=== PATIENT | male | born 1955 | race Two or more races ===

== ENCOUNTER 2021-08-22 18:15 | Emergency (ER) | payer OTHER ==
[2021-08-22 18:53] VITALS: BP 174/82; PULSE 99; TEMP 99; BMI 19.4
== END 2021-08-22 19:05 | disposition home or self-care (01) ==
LOC: FER 18:15
DX: M21.331 Wrist drop, right wrist (principal)
CPT/HCPCS: 99281-25

== ENCOUNTER 2021-10-19 14:19 | Emergency (ER) | payer OTHER ==
[2021-10-19 14:27] VITALS: TEMP 98.7; BMI 20.5
[2021-10-19 16:31] VITALS: BP 136/70; PULSE 65
== END 2021-10-19 16:33 | disposition home or self-care (01) ==
LOC: FER 14:19
DX: M62.81 Muscle weakness (generalized) (principal)
CPT/HCPCS: 70450-TC; 73030-TC-RT-FY; 73070-TC-RT-FY; 99285-25

== ENCOUNTER 2022-04-26 15:07 | Inpatient (IN) | payer OTHER ==
[2022-04-26 15:30] VITALS: BMI 20.7
[2022-04-26] MEDS ORDERED: ASPIRIN 81 MG CHEWABLE TABLETS PO ONE (17:33)
[2022-04-26] MEDS ORDERED: ASPIRIN 81 MG CHEWABLE TABLETS ONE (18:34)
[2022-04-26 19:05] LABS: BASO % 0.8 % (0-2.0); EOS % 4.3 % (0-4.5); HEMATOCRIT 33.4 % (35.4-49); HEMOGLOBIN 11.3 GM/dL (11.7-16.9); LYMPH % 33.8 % (8-40); MCH 31.1 pg (25.7-33.7); MCHC 33.7 g/dl (32.0-35.9); MEAN CELL VOLUME 92.3 fl (80-96); MEAN PLT VOLUME 9.7 fl (7.5-11.1); MONO % 7.9 % (3.8-10.2); NEUT % 53.2 % (42.8-82.8); PLATELET COUNT 143 10^3/uL (134-434); RBC 3.62 M/mm3 (4.00-5.60); RDW 14.6 % (11.9-15.9); WHITE BLOOD COUNT 5.3 K/mm3 (4.0-10.0)
[2022-04-26 19:14] LABS: CHLORIDE 110 mmol/L (98-107); SODIUM 144 mmol/L (136-145)
[2022-04-26 19:16] LABS: CALCIUM 8.6 mg/dL (8.5-10.1)
[2022-04-26 19:17] LABS: ALBUMIN 3.5 g/dl (3.4-5.0); ANION GAP 6 MMOL/L (8-16); BLOOD UREA NITROGEN 22.3 mg/dL (7-18); CO2 28 mmol/L (21-32); GLUCOSE,RANDOM 70 mg/dL (74-106)
[2022-04-26 19:20] LABS: CREATININE 1.3 mg/dL (0.55-1.3); SGOT/AST 29 U/L (15-37); SGPT/ALT 22 U/L (13-61)
[2022-04-26 19:22] LABS: BILIRUBIN,TOTAL 0.9 mg/dL (0.2-1); TOT PROT 6.6 g/dl (6.4-8.2)
[2022-04-26 19:23] LABS: ALK PHOS 81 U/L (45-117)
[2022-04-27] MEDS ORDERED: ALBUTEROL SO4 HFA INHALER IH PRN (07:08)
[2022-04-27] MEDS ORDERED: BISACODYL 5 MG TABLET.DR (FP) PO SCH (07:15)
[2022-04-27] MEDS ORDERED: ONDANSETRON 4 MG TABLET PO SCH (07:15)
[2022-04-27] MEDS ORDERED: POLYETHYLENE GLYCOL (HEALTHYLAX) 3350 17 GM PACKET PO SCH ×2 (07:15→14:25)
[2022-04-27] MEDS ORDERED: ONDANSETRON *ODT* 4 MG TABLET ONE (07:33)
[2022-04-27] MEDS ORDERED: TAMSULOSIN HCL 0.4 MG CAP ONE (07:34)
[2022-04-27] MEDS: TAMSULOSIN HCL 0.4 MG CAP PO SCH (07:38)
[2022-04-27] MEDS ORDERED: FOLIC ACID 1 MG TABLET (FP) ONE (07:42)
[2022-04-27] MEDS ORDERED: ASPIRIN 81 MG CHEWABLE TABLETS ONE (07:42)
[2022-04-27] MEDS ORDERED: CLOPIDOGREL BISULFATE 75 MG TABLET (FP) ONE (07:42)
[2022-04-27] MEDS ORDERED: ENOXAPARIN NA (PORCINE) 40 MG/0.4 ML DISP.SYRIN SQ ONE (07:42)
[2022-04-27 08:16] LABS: HEMATOCRIT 34.5 % (35.4-49); HEMOGLOBIN 11.8 GM/dL (11.7-16.9); MCH 31.4 pg (25.7-33.7); MCHC 34.1 g/dl (32.0-35.9); MEAN CELL VOLUME 92.1 fl (80-96); MEAN PLT VOLUME 9.3 fl (7.5-11.1); PLATELET COUNT 151 10^3/uL (134-434); RBC 3.75 M/mm3 (4.00-5.60); RDW 14.7 % (11.9-15.9); RETICULOCYTES 0.99 % (0.5-1.5); WHITE BLOOD COUNT 7.8 K/mm3 (4.0-10.0)
[2022-04-27 08:51] LABS: CALCIUM 8.6 mg/dL (8.5-10.1)
[2022-04-27 08:52] LABS: ALBUMIN 3.5 g/dl (3.4-5.0)
[2022-04-27 08:55] LABS: CREATININE 1.1 mg/dL (0.55-1.3); PHOSPHOROUS 2.6 mg/dL (2.5-4.9)
[2022-04-27 08:56] LABS: BILIRUBIN,TOTAL 0.5 mg/dL (0.2-1)
[2022-04-27 08:57] LABS: TOT PROT 6.5 g/dl (6.4-8.2)
[2022-04-27 09:03] LABS: URINE APPEARANCE CLEAR; URINE BILIRUBIN NEGATIVE (NEGATIVE); URINE COLOR YELLOW; URINE GLUCOSE (UA) NEGATIVE (NEGATIVE); URINE KETONE TRACE (NEGATIVE); URINE LEUK ESTERASE NEGATIVE (NEGATIVE); URINE NITRITE NEGATIVE (NEGATIVE); URINE PROTEIN NEGATIVE (NEGATIVE); URINE UROBILINOGEN 0.2 mg/dL (0.2-1.0)
[2022-04-27] MEDS: FOLIC ACID 1 MG TABLET (FP) PO SCH (09:06)
[2022-04-27] MEDS: CLOPIDOGREL BISULFATE 75 MG TABLET (FP) PO SCH (09:06)
[2022-04-27] MEDS: ASPIRIN 81 MG CHEWABLE TABLETS PO SCH (09:06)
[2022-04-27] MEDS: ENOXAPARIN NA (PORCINE) 40 MG/0.4 ML DISP.SYRIN SQ SCH (09:06)
[2022-04-27 18:45] LABS: COCAINE, UR NEGATIVE (NEGATIVE); OPIATES, URI NEGATIVE (NEGATIVE)
[2022-04-27 18:46] LABS: METHADONE, UR NEGATIVE (NEGATIVE); PHENCYCLIDINE,URINE NEGATIVE (NEGATIVE)
[2022-04-27 19:21] LABS: URINE AMPHETAMINES NEGATIVE (NEGATIVE); URINE BARBITURATES NEGATIVE (NEGATIVE); URINE BENZODIAZEPINES NEGATIVE (NEGATIVE)
[2022-04-27] MEDS ORDERED: PANTOPRAZOLE SODIUM 40 MG in SODIUM CHLORIDE 100 ML IVPUSH SCH (22:00)
[2022-04-27] MEDS ORDERED: HYDROCORTISONE ACETATE 25 MG/SUPP.RECT PR SCH (22:00)
[2022-04-27] MEDS ORDERED: MONTELUKAST NA 10 MG TABLET PO SCH (22:00)
[2022-04-27] MEDS ORDERED: CYPROHEPTADINE HCL 4 MG TABLET PO SCH (22:00)
[2022-04-28 03:06] VITALS: RESP 18
[2022-04-28] MEDS: PANTOPRAZOLE SODIUM 40 MG VIAL IVPUSH SCH ×2 (05:53→09:21)
[2022-04-28] MEDS ORDERED: MONTELUKAST NA 10 MG TABLET ONE (05:54)
[2022-04-28] MEDS ORDERED: PANTOPRAZOLE SODIUM 40 MG VIAL ONE ×2 (05:55→09:08)
[2022-04-28] MEDS ORDERED: LISINOPRIL 10 MG TABLET PO SCH ×2 (06:44→10:00)
[2022-04-28 08:41] LABS: HEMOGLOBIN 11.7 GM/dL (11.7-16.9); MCH 31.1 pg (25.7-33.7); MCHC 34.5 g/dl (32.0-35.9); MEAN CELL VOLUME 90.3 fl (80-96); PLATELET COUNT 157 10^3/uL (134-434); RBC 3.77 M/mm3 (4.00-5.60); RDW 14.3 % (11.9-15.9); WHITE BLOOD COUNT 4.9 K/mm3 (4.0-10.0)
[2022-04-28 09:02] LABS: ALBUMIN 3.2 g/dl (3.4-5.0); BLOOD UREA NITROGEN 14.6 mg/dL (7-18); CALCIUM 8.7 mg/dL (8.5-10.1)
[2022-04-28 09:05] LABS: CREATININE 0.9 mg/dL (0.55-1.3)
[2022-04-28 09:07] LABS: BILIRUBIN,TOTAL 0.6 mg/dL (0.2-1); TOT PROT 6.2 g/dl (6.4-8.2)
[2022-04-28] MEDS ORDERED: FOLIC ACID 1 MG TABLET (FP) ONE (09:07)
[2022-04-28] MEDS ORDERED: POLYETHYLENE GLYCOL (HEALTHYLAX) 3350 17 GM PACKET ONE (09:07)
[2022-04-28] MEDS ORDERED: LISINOPRIL 10 MG TABLET ONE (09:08)
[2022-04-28] MEDS ORDERED: ENOXAPARIN NA (PORCINE) 40 MG/0.4 ML DISP.SYRIN SQ ONE (09:08)
[2022-04-28] MEDS ORDERED: CLOPIDOGREL BISULFATE 75 MG TABLET (FP) ONE (09:08)
[2022-04-28] MEDS ORDERED: TAMSULOSIN HCL 0.4 MG CAP ONE (09:08)
[2022-04-28] MEDS ORDERED: ASPIRIN 81 MG CHEWABLE TABLETS ONE (09:08)
[2022-04-28] MEDS: ASPIRIN 81 MG CHEWABLE TABLETS PO SCH (09:20)
[2022-04-28] MEDS: TAMSULOSIN HCL 0.4 MG CAP PO SCH (09:20)
[2022-04-28] MEDS: FOLIC ACID 1 MG TABLET (FP) PO SCH (09:21)
[2022-04-28] MEDS: ENOXAPARIN NA (PORCINE) 40 MG/0.4 ML DISP.SYRIN SQ SCH (09:21)
[2022-04-28] MEDS: CLOPIDOGREL BISULFATE 75 MG TABLET (FP) PO SCH (09:21)
[2022-04-28] MEDS ORDERED: POLYETHYLENE GLYCOL (HEALTHYLAX) 3350 17 GM PACKET PO SCH (10:00)
[2022-04-28 10:09] VITALS: BP 141/80; PULSE 60; TEMP 98.3
== END 2022-04-28 10:20 | disposition home or self-care (01) | DRG 199 ==
LOC: JER 15:07 → JERBED 21:14
PROVIDERS: ADMIT Internal Medicine; ATTEND Internal Medicine
DX: I10 Essential (primary) hypertension (principal); R07.9 Chest pain, unspecified; J44.9 Chronic obstructive pulmonary disease, unspecified; D64.9 Anemia, unspecified; I73.9 Peripheral vascular disease, unspecified; N40.0 Benign prostatic hyperplasia without lower urinary tract symptoms; Z72.0 Tobacco use; K64.8 Other hemorrhoids
CPT/HCPCS: 36415; 71046-TC-FY; 80053; 80061; 80307; 81003; 82728; 82962; 83540; 83615; 83735; 84100; 84443; 84484; 85025; 85027; 85045; 87086; 93005; 93010; 93306-TC; 99285-25; C9803-CS; U0003; U0005

== ENCOUNTER 2022-05-23 15:06 | Emergency (ER) | payer OTHER ==
[2022-05-23 15:14] VITALS: BP 145/58; PULSE 73; RESP 18; BMI 20.3
[2022-05-23 16:45] VITALS: TEMP 98.1
== END 2022-05-23 16:56 | disposition left against medical advice (07) ==
LOC: JER 15:06
DX: R55 Syncope and collapse (principal); I73.9 Peripheral vascular disease, unspecified
CPT/HCPCS: 99283-25

== ENCOUNTER 2024-11-20 11:48 | Emergency (ER) | payer OTHER ==
[2024-11-20 12:05] VITALS: RESP 16; BMI 19.8
[2024-11-20] MEDS ORDERED: ACETAMINOPHEN INJECTION 100 ML ONE (12:57)
[2024-11-20] MEDS: ACETAMINOPHEN 1000 MG/100 ML BAG IVPB ONE (13:07)
[2024-11-20 13:11] LABS: BASO % 0.3 % (0-2.0); EOS % 0.3 % (0-4.5); HEMATOCRIT 27.4 % (35.4-49); HEMOGLOBIN 8.9 GM/dL (11.7-16.9); LYMPH % 11.6 % (8-40); MCH 27.2 pg (25.7-33.7); MCHC 32.3 g/dl (32.0-35.9); MEAN CELL VOLUME 84.2 fl (80-96); MEAN PLT VOLUME 7.4 fl (7.5-11.1); MONO % 4.3 % (3.8-10.2); NEUT % 83.5 % (42.8-82.8); PLATELET COUNT 264 10^3/uL (134-434); RBC 3.26 M/mm3 (4.00-5.60); RDW 17.1 % (11.9-15.9); WHITE BLOOD COUNT 11.2 K/mm3 (4.0-10.0)
[2024-11-20 13:31] LABS: POTASSIUM 3.5 mmol/L (3.5-5.1)
[2024-11-20 13:34] LABS: CALCIUM 8.5 mg/dL (8.5-10.1)
[2024-11-20 13:35] LABS: ALBUMIN 2.6 g/dl (3.4-5.0); BLOOD UREA NITROGEN 16.1 mg/dL (7-18)
[2024-11-20 13:38] LABS: CREATININE 0.8 mg/dL (0.55-1.3)
[2024-11-20 13:39] LABS: BILIRUBIN,TOTAL 0.3 mg/dL (0.2-1)
[2024-11-20 13:40] LABS: TOT PROT 7.1 g/dl (6.4-8.2)
[2024-11-20] MEDS ORDERED: KETOROLAC TROMETHAMINE 15 MG/ML VIAL ONE (16:16)
[2024-11-20] MEDS: KETOROLAC TROMETHAMINE 15 MG/ML VIAL IM ONE (16:22)
[2024-11-20 17:51] VITALS: BP 113/59; PULSE 64; TEMP 98.3
== END 2024-11-20 18:31 | disposition home or self-care (01) ==
LOC: JER 11:48
PROC: 3E033NZ Introduction of Analgesics, Hypnotics, Sedatives into Peripheral Vein, Percutaneous Approach (ICD-10-PCS; principal; 2024-11-20)
PROC: 3E0233Z Introduction of Anti-inflammatory into Muscle, Percutaneous Approach (ICD-10-PCS; 2024-11-20)
DX: M27.49 Other cysts of jaw (principal); R22.0 Localized swelling, mass and lump, head
CPT/HCPCS: 36415; 70487-TC; 80053; 85025; 85651; 86140; 99285-25; J0131; Q9967